=== PATIENT | male | born 1960 | race Caucasian/White ===

== ENCOUNTER 2024-07-21 17:41 | Emergency (ER) | payer OTHER, SELFPAY ==
[2024-07-21 17:44] VITALS: BP 167/90; PULSE 79; TEMP 37.1; O2SAT 99; BMI 26.5
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
[2024-07-21 18:29] VITALS: BP 145/86; PULSE 78; O2SAT 99
== END 2024-07-21 18:32 | disposition home or self-care (01) ==
PROVIDERS: Emergency Provider Emergency Medicine; PCP Family Medicine
DX: S39.012A Strain of muscle, fascia and tendon of lower back, initial encounter (principal); V89.2XXA Person injured in unspecified motor-vehicle accident, traffic, initial encounter
CPT/HCPCS: 99283